=== PATIENT | female | born 1995 | race Caucasian/White ===

== ENCOUNTER → 2017-02-24 | Outpatient (CLI) | payer OTHER ==
--- NOTE | 2017-02-24 16:56 | REP ---
CT ABDOMEN WITHOUT CONTRAST: 02/24/2017. Comparison: Abdominal wall ultrasound 08/15/2013, CT 02/01/2011. Clinical history: Upper abdominal pain. Possible ventral hernia. Technique: Noncontrast images from the dome of the diaphragm to the iliac crests with coronal and sagittal reconstructions provided. Findings: Lung bases are clear. Heart is not enlarged. There is no pericardial thickening or effusion. The liver, spleen, gallbladder, pancreas, adrenal glands, kidneys, abdominal portions of the colon and small bowel were all unremarkable. There is no aortic aneurysm, periaortic or retroperitoneal pathologic sized lymphadenopathy. Bone windows show lumbar and lower thoracic spine, their posterior elements and visualized lower thoracic ribs all unremarkable. There are two curvilinear umbilical jewelry pieces at the superior and inferior aspect of the umbilicus. No umbilical hernia or diastases of the rectus muscles and sagittal reconstructions. The supra and infraumbilical subcutaneous fat layer is thicker in those locations than elsewhere in the anterior abdominal wall. This may reflect increased fatty deposition or even infiltrative type lipomas where no capsule is seen, but they may still be palpable. That would have to be correlated clinically. There is no evidence of a Spigelian hernia with the rectus and oblique muscles maintaining normal relationships. No lumbar hernia is evident. No other significant finding. Impression: 1. There is no CT evidence of umbilical or midline/ventral hernia in the abdomen. No diastases of the rectus muscles nor Spigelian hernia. This is a negative examination for any CT findings. If there is a palpable abnormality in the midline, it could possibly represent infiltrative lipoma without a capsule to clearly define it on imaging. Signed by Antonio Mojica MD 02/24/2017 05:11 P
== END ==
LOC: M RAD 15:19
PROVIDERS: ATTEND Nurse Practitioner Family
DX: R10.10 Upper abdominal pain, unspecified (principal)

== ENCOUNTER → 2017-04-19 | Day surgery (SDC) | payer OTHER ==
[~2017-04-19] VITALS: Ht 165.1 cm; Wt 74.8 kg
[~2017-04-19] MED LIST: LIDOCAINE 2% INJ 100 MG/5 ML SDV (FOR ANES.) As Ordered ONE; LIDOCAINE W/EPINEPHRINE 1% 20ML VIAL As Ordered ONE; LR 1,000 ML IV ONE; LR 1,000 ML IV SCH; MIDAZOLAM INJ 2 MG/2 ML VIAL (J2250) As Ordered ONE; PROPOFOL 200 MG/20 ML VIAL As Ordered ONE; SERT-155 PO; TRINTAB PO; fentaNYL 100 MCG/2 ML INJECTION (J3010) As Ordered ONE
[2017-04-19 10:37] LABS: CONTROL LINE UCG INT CTR LINE PRESENT
[2017-04-19 14:40] VITALS: BP 120/75
--- NOTE | 2017-04-19 21:11 | RO ---
DATE OF PROCEDURE: 04/19/2017 PREOPERATIVE DIAGNOSIS: Abdominal wall lipoma. POSTOPERATIVE DIAGNOSIS: Abdominal wall lipoma. OPERATIVE PROCEDURE: Excision of abdominal wall lipoma. SURGEON: Alverto Velazquez MD SERVICE ATTENDANT: None. ANESTHESIA: IV sedation with 6 mL of 1% lidocaine with epinephrine local. COMPLICATIONS: None. INDICATIONS FOR PROCEDURE: The patient is a 21-year-old female with a supraumbilical abdominal mass that is very painful. Recommendation was to proceed with excision of this likely abdominal wall lipoma. Risks and benefits of procedure not limited but including bleeding, infection and damage to surrounding structures were discussed in detail with the patient, informed consent was obtained and procedure was planned. DESCRIPTION OF PROCEDURE: The patient brought back to operating room three. After sufficient sedation the abdomen was sterilely prepped and draped. Next, a time out was done to confirm proper patient and proper procedure. Following that, 6 mL of lidocaine was injected into the skin and subcutaneous tissue in the midline. A #15 blade scalpel was then used to make a 6 cm incision. Following that, using sharp dissection with Metzenbaum scissors, the lipoma was carefully dissected free from the abdominal wall posteriorly and laterally until the edges were reached. Once the edges were reached, the base of it was carefully dissected free using electrocautery until the mass was completely removed measuring 6 x 6 cm in length and width and about 4 cm in depth. The lipoma was removed. The subcutaneous tissues were approximated with interrupted #3-0 Vicryl sutures. Skin was brought back together with a running #4-0 Vicryl subcuticular suture. The area was then cleaned and dried. Steri-Strips, 4 x 4 and tape were applied thus ending the procedure.
== END | disposition home or self-care (01) ==
LOC: M SDC 09:59
PROVIDERS: ATTEND Surgery
DX: D17.1 Benign lipomatous neoplasm of skin and subcutaneous tissue of trunk (principal); F41.9 Anxiety disorder, unspecified; F32.9 Major depressive disorder, single episode, unspecified; Z88.0 Allergy status to penicillin; Z79.3 Long term (current) use of hormonal contraceptives; Z79.899 Other long term (current) drug therapy
CPT/HCPCS: 22903; 84703; 88304; J2250; J3010

== ENCOUNTER 2017-10-25 15:52 | Emergency (ER) | payer OTHER ==
[~2017-10-25] VITALS: Ht 162.6 cm; Wt 72.7 kg
[2017-10-25 15:52] VITALS: BP 124/76
[~2017-10-25 15:52] MED LIST changes: -LIDOCAINE 2% INJ 100 MG/5 ML SDV (FOR ANES.) As Ordered ONE; -LIDOCAINE W/EPINEPHRINE 1% 20ML VIAL As Ordered ONE; -LR 1,000 ML IV ONE; -LR 1,000 ML IV SCH; -MIDAZOLAM INJ 2 MG/2 ML VIAL (J2250) As Ordered ONE; -PROPOFOL 200 MG/20 ML VIAL As Ordered ONE; -TRINTAB PO; +TRINTAB3 PO; -fentaNYL 100 MCG/2 ML INJECTION (J3010) As Ordered ONE
[2017-10-25] MEDS ORDERED: MAGNESIUM CITRATE 300 ML BTL PO ONE (16:45)
[2017-10-25] MEDS ORDERED: ONDANSETRON 4 MG ORAL DISINTEGRATING TAB (S0181) PO ONE (16:45)
[2017-10-25] MEDS ORDERED: ZOFR4TAB3 PO (16:49)
== END 2017-10-25 17:00 | disposition home or self-care (01) ==
LOC: M ED 15:52
DX: K59.00 Constipation, unspecified (principal); R11.2 Nausea with vomiting, unspecified; Z79.3 Long term (current) use of hormonal contraceptives; Z79.899 Other long term (current) drug therapy; Z88.0 Allergy status to penicillin

== ENCOUNTER → 2018-07-30 | Outpatient (REF) | payer OTHER | LOC: M LAB REF 16:42 | DX: J02.9 Acute pharyngitis, unspecified (principal) ==

== ENCOUNTER → 2019-02-13 | Outpatient (REF) | payer OTHER ==
[~2019-02-13] MED LIST changes: +TRINTAB PO; -TRINTAB3 PO; +ZOFR4TAB14 PO
[2019-02-13 14:54] LABS: CHLAMYDIA DNA AMPLIFICATION NEGATIVE (NEGATIVE); GC DNA AMPLIFICATION NEGATIVE (NEGATIVE)
== END ==
LOC: M SFHCWAGY 11:37
PROVIDERS: ATTEND Nurse Practitioner Women's Health
DX: Z12.4 Encounter for screening for malignant neoplasm of cervix (principal)
CPT/HCPCS: 87491; 87591; G0123

== ENCOUNTER → 2019-09-02 | Outpatient (REF) | payer OTHER ==
[~2019-09-02] MED LIST changes: -SERT-155 PO; +SERT50TA29 PO
[2019-09-02 11:32] LABS: BASO % 0.3 % (0.0-1.0); EOS # 0.1 10^3/uL (0.0-0.5); EOS % 0.4 % (0.0-3.0); HEMATOCRIT 42.5 % (36.0-47.0); HEMOGLOBIN 14.3 g/dl (12.0-15.5); LYMPH # 1.9 10^3/uL (1.5-5.0); LYMPH % 16.3 % (24.0-44.0); MEAN CORPUSCULAR HEMOGLOBIN 32.6 pg (27.0-33.0); MEAN CORPUSCULAR HGB CONC 33.6 g/dl (32.0-36.5); MONO # 0.6 10^3/uL (0.0-0.8); MONO % 5.4 % (0.0-5.0); NEUTROPHILS # 8.9 10^3/uL (1.5-8.5); NEUTROPHILS % 77.2 % (36.0-66.0); PLATELET COUNT, AUTOMATED 269 10^3/uL (150-450); RED BLOOD COUNT 4.38 10^6/uL (4.00-5.40); WHITE BLOOD COUNT 11.6 10^3/uL (4.0-10.0)
[2019-09-02 12:26] LABS: HEPATITIS C VIRUS ABY INDEX 0.1 INDEX (<0.8); HIV 1&2 SCREEN CENTAUR NEGATIVE (NEGATIVE); RUBELLA IgG QUALITATIVE IMMUNE (IMMUNE)
[2019-09-03 14:28] LABS: CHLAMYDIA DNA AMPLIFICATION NEGATIVE (NEGATIVE); GC DNA AMPLIFICATION NEGATIVE (NEGATIVE)
== END ==
LOC: M LABDRAWC 07:12
PROVIDERS: ATTEND Advanced Practice Midwife
DX: Z34.81 Encounter for supervision of other normal pregnancy, first trimester (principal)

== ENCOUNTER → 2019-10-14 | Outpatient (CLI) | payer OTHER ==
--- NOTE | 2019-10-14 08:41 | REP ---
Clinical: Anatomical evaluation. Comparison: None . Findings: Examination demonstrates a single live intrauterine in cephalic presentation. motion is identified by technologist. Placenta is noted anterior and grade zero without evidence for placenta previa or abruption. Amniotic fluid volume is normal. Cervix measures 4.5 cm in length and appears closed. Nuchal cord noted. Gestational age by LMP 18 weeks 4 days with CHRISTOPHE 03/12/2020 . Gestational age by current measurements 18 weeks 6 days with CHRISTOPHE 03/10/2020 . FHR equals 132 beats per minute. BPD 4.2 cm 18 weeks 6 days HC 16.0 cm 18 weeks 6 days AC 13.3 cm 18 weeks 5 days FL 2.9 cm 18 weeks 5 days HL 2.8 cm 19 weeks 0 days HC/AC ratio 1.20 Estimated weight 257 grams ( 53rd percentile). Anatomical assessment demonstrates normal structures including cranium, choroid plexus, lungs, diaphragm, stomach, cord insertion, kidneys/bladder, spine, and lower extremities. Limited evaluation of the cavum, posterior fossa, facial features, heart/ventricular outflow tracts, three-vessel cord images, and upper extremities. Impression: 1. Single live intrauterine demonstrating appropriate interval growth. 2. Limited anatomical assessment may warrant reevaluation and follow-up. 3. Nuchal cord. Electronically Signed by Golden Bose MD 10/14/2019 08:33 A
== END ==
LOC: M RAD 07:49
PROVIDERS: ATTEND Advanced Practice Midwife
DX: Z34.82 Encounter for supervision of other normal pregnancy, second trimester (principal); Z3A.18 18 weeks gestation of pregnancy

== ENCOUNTER → 2019-11-08 | Outpatient (CLI) | payer OTHER ==
--- NOTE | 2019-11-08 11:10 | REP ---
Clinical: Anatomical evaluation. Comparison: 10/14/2019 . Findings: Examination demonstrates a single live intrauterine in hansa breech presentation. motion is identified by technologist. Placenta is noted anterior and grade I without evidence for placenta previa or abruption. Amniotic fluid volume is normal. Cervix measures 4.7 cm in length and appears closed. No evidence for nuchal cord. Gestational age by LMP 22 weeks 1 day with CHRISTOPHE 03/12/2020 . Gestational age by current measurements 22 weeks 4 days with CHRISTOPHE 03/09/2020 . FHR equals 157 beats per minute. Estimated weight 521 grams ( 63rd percentile). Anatomical assessment demonstrates normal structures including cranium, choroid plexus, cavum, cerebellum/posterior fossa, facial features, lungs, four-chamber heart/ventricular outflow tracts, diaphragm, stomach, cord insertion/three-vessel cord, kidneys, and extremities. Impression: 1. Single live intrauterine in breech presentation demonstrating appropriate interval growth. 2. In conjunction with prior examination anatomical assessment is complete and normal. Electronically Signed by Golden Bose MD 11/08/2019 11:01 A
== END ==
LOC: M RAD 09:54
PROVIDERS: ATTEND Advanced Practice Midwife
DX: Z34.02 Encounter for supervision of normal first pregnancy, second trimester (principal)

== ENCOUNTER → 2019-12-13 | Outpatient (CLI) | payer OTHER ==
[2019-12-13 12:44] LABS: HEMATOCRIT 37.6 % (36.0-47.0); HEMOGLOBIN 12.5 g/dl (12.0-15.5); MEAN CORPUSCULAR HEMOGLOBIN 32.9 pg (27.0-33.0); MEAN CORPUSCULAR HGB CONC 33.2 g/dl (32.0-36.5); MEAN CORPUSCULAR VOLUME 98.9 fl (80.0-96.0); PLATELET COUNT, AUTOMATED 238 10^3/uL (150-450); WHITE BLOOD COUNT 13.3 10^3/uL (4.0-10.0)
== END ==
LOC: M WUC 09:48
PROVIDERS: ATTEND Advanced Practice Midwife
DX: Z34.02 Encounter for supervision of normal first pregnancy, second trimester (principal); Z3A.00 Weeks of gestation of pregnancy not specified

== ENCOUNTER 2019-12-24 12:57 | Outpatient (CLI) | payer OTHER ==
[~2019-12-24] VITALS: Ht 162.6 cm; Wt 95.8 kg
[2019-12-24 13:13] VITALS: BP 115/62
[2019-12-24] MEDS ORDERED: MAPA500T2 PO (13:41)
[2019-12-24 14:07] VITALS: BP 119/65
== END 2019-12-24 14:10 | disposition home or self-care (01) ==
LOC: M LDO 12:57
PROVIDERS: ATTEND Obstetrics & Gynecology
DX: O26.859 Spotting complicating pregnancy, unspecified trimester (principal); Z88.0 Allergy status to penicillin; Z88.1 Allergy status to other antibiotic agents; Z3A.00 Weeks of gestation of pregnancy not specified
CPT/HCPCS: G0378; G0463

== ENCOUNTER → 2020-02-13 | Outpatient (REF) | payer OTHER ==
[~2020-02-13] MED LIST changes: +MAPA500T2 PO
== END ==
LOC: M SFHCWAGY 13:13
PROVIDERS: ATTEND Advanced Practice Midwife
DX: O99.343 Other mental disorders complicating pregnancy, third trimester (principal)

== ENCOUNTER 2020-03-08 15:37 | Inpatient (IN) | payer OTHER ==
[~2020-03-08] VITALS: Ht 162.6 cm; Wt 98.4 kg
[2020-03-08] VITALS (10 sets, daily range): BP systolic 92–114; BP diastolic 55–71
[2020-03-08] MEDS ORDERED: LEXA1TAB2 PO (16:06)
[2020-03-08] MEDS ORDERED: TUMS750C5 PO (16:08)
[2020-03-08] MEDS ORDERED: LACTATED RINGER'S 1000 ML IV STA (16:20)
--- NOTE | 2020-03-08 16:33 | HPEPDOC ---
Obstetrical History & Physical General Date of Admission Mar 08, 2020 at 15:37 Primary Care Physician: LINDA STANFORD CNM History of Present Illness Patient is a 24-year-old female who is a at 39.3 weeks gestation with an CHRISTOPHE of 03/12/20 based off of her LMP and consistent with her first trimester ultrasound. She initiated care in her first trimester of . Her has been uncomplicated. She has been taking Lexapro 20 mg daily for anxiety. She presents to L&D for an elective IOL. She reports active movement and occasional contractions. She denies leaking of fluid or vaginal bleeding. 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 Past Medical History Medical History Anxiety treated with Lexapro Surgical History: Tonsilectomy, Other (lipoma resection) Family History Significant Family History: No pertinent family hx Social History Marital Status: Family situation: Spouse/partner home Psychosocial History: Anxiety * Smoker: non-smoker Alcohol: Denies Drugs: denies Abuse Violence Screening Have you been hit/kicked/slapp: No Have you been sexually assault: No Allergies Coded Allergies: MS - Amoxicillin (Unverified Allergy, Intermediate, hives, 04/19/17) MS - Penicillin G (Unverified Allergy, Intermediate, hives, 04/19/17) Medications Scheduled Escitalopram Oxalate (Lexapro) 20 Mg Tablet, 1 TAB PO QHS Scheduled PRN Acetaminophen (Mapap) 500 Mg Tablet, 1,000 MG PO Q6HP PRN for DISCOMFORT Calcium Carbonate (Tums) 300 Mg Tab.chew, 2 TABS PO Q6HP PRN for INDIGESTION Ondansetron (Zofran Odt) 4 Mg Tab, 4 MG PO Q4H PRN for NAUSEA Physical Examination Physical Examination GENERAL: Alert and oriented times three. BREAST: . ABDOMEN: Gravid and non-tender to touch. FETUS: Is vertex (VTX) by sterile vaginal examination (SVE), fetus is vertex (VTX) by Zeeshan. HEART RATE: Regular rate and rhythm. LUNGS: Clear to auscultation (CTA). EXTREMITIES: No edema. No clonus. Deep tendon reflexes (DTRs) + 2. Laboratory Data [facility] Laboratory Tests 2 03/08/20 15:47: Serology Scanned Report Hepatitis B Testing Urine Culture: No Growth Pertinent Laboratoy Data Blood Type: O+ RBC Antibody Screen: Negative HIV: Negative Hepatitis B: Negative Hepatitis C: Negative Rapid Plasma Reagin: Nonreactive Rubella: Immune Chlamydia/Gonorrhea: Negative Group B Streptococcus: Negative Quad Screen Test: Declined Glucose Tolerance Test: 121 Anatomy Ultrasound Ultrasound Date: Nov 08, 2019 Placenta Location: Anterior Normal Anatomy: Yes Placenta Previa: No Vaginal Examination Dilation: 2cm Effacement: 80% Station: -2 Cervical Consistency: Medium Cervical Position: Middle Presentation: Cephalic presentation Position: Vertex (occiput) Assessment Heart Rate (FHR): 120 Variability: Moderate Accelerations: Positive Decelerations: None Tocometer Contractions: Yes Frequency: greater than 9 min/apart Multi-drug resistant Organism: No history of MDRO Assessment/Plan Assessment IUP at 39.3 weeks Category I FHR tracing GBS negative elective induction of labor Plan Admit to Labor and delivery. Slide Fasteners Inspector and consent. Diet: . Group B Streptococcus (GBS) negative. Labs and intravenous (IV) per unit protocol. Counseled on Cytotec, beaver bulb and Pitocin for induction of labor. Anesthesia consult per patient's desire. Lactated Ringers (LR): Bolus 800 mL prior to epidural, then at 125 mL/hr. Anticipate cervical ripening. C-S as appropriate. LINDA STANFORD CNM Mar 08, 2020 16:33
[2020-03-08] MEDS ORDERED: miSOPROStol 50 MCG 1/2 TAB (S0191) PO SCH (17:00)
[2020-03-08 17:12] LABS: HEMATOCRIT 36.5 % (36.0-47.0); HEMOGLOBIN 11.9 g/dl (12.0-15.5); MEAN CORPUSCULAR HEMOGLOBIN 29.4 pg (27.0-33.0); MEAN CORPUSCULAR HGB CONC 32.6 g/dl (32.0-36.5); MEAN CORPUSCULAR VOLUME 90.1 fl (80.0-96.0); PLATELET COUNT, AUTOMATED 281 10^3/uL (150-450); RED BLOOD COUNT 4.05 10^6/uL (4.00-5.40); WHITE BLOOD COUNT 11.2 10^3/uL (4.0-10.0)
[2020-03-08] MEDS ORDERED: OXYTOCIN DRIP 30 UNITS in IV 1 EA IV SCH (21:30)
--- NOTE | 2020-03-08 21:32 | IPNPDOC ---
Obstetrical Progress Note Date of Service Mar 08, 2020 Subjective Patient reports she is feeling some contractions. Objective Vital Signs Date Time Temp Pulse Resp B/P (MAP) Pulse Ox O2 Delivery O2 Flow Rate FiO2 03/08/20 18:26 98.0 65 20 114/58 (76) 97 Room Air Assessment Heart Rate (FHR): 125 Variability: Moderate Accelerations: Positive Decelerations: None Heart Rate Tracing: Category I Tocometer Contractions: Yes Frequency: regular, every 1-3 min. Sterile Vaginal Examination Dilation: 2cm Effacement (%): 80% Station: -2 Cervical Consistency: Soft Cervical Position: Middle Postion/Presentation: Cephalic presentation Assessment and Plan EGA at Admission: 39.3 Status: Reassuring Group B Streptococcus: Negative Anticipate: Vaginal Delivery Additional Comments Patient given option for beaver bulb with low dose IV Pitocin or just IV Pitocin. Patient desires to just do IV Pitocin. LINDA STANFORD CNM Mar 08, 2020 21:32
[2020-03-08] MEDS: LR 1,000 ML IV SCH (22:43)
[2020-03-09] VITALS (47 sets, daily range): BP systolic 89–150; BP diastolic 50–97
[2020-03-09] MEDS ORDERED: PROMETHAZINE INJ 25 MG/ML VIAL (J2550) IV ONE (02:00)
[2020-03-09] MEDS ORDERED: BUTORPHANOL 2 MG/ML INJ (J0595) IV ONE (02:00)
[2020-03-09] MEDS ORDERED: FENTANYL 2MCG/ML ROPIVACAINE 0.2% IN 0.9% NACL 100ML IVBAG As Ordered ONE (04:30)
[2020-03-09] MEDS ORDERED: ONDANSETRON 4MG/2ML VIAL As Ordered ONE (05:24)
[2020-03-09] MEDS ORDERED: NALOXONE INJ 0.4MG/1ML VIAL (J2310 PER 1MG) IV PRN (05:45)
[2020-03-09] MEDS ORDERED: ONDANSETRON 4MG/2ML VIAL IV PRN (05:45)
[2020-03-09] MEDS ORDERED: ePHEDrine SULFATE 25 MG/5 ML(5MG/ML) SYRINGE IV PRN (05:45)
[2020-03-09] MEDS ORDERED: LACTATED RINGER'S 1000 ML IV PRN (05:45)
[2020-03-09] MEDS ORDERED: diphenhydrAMINE 50MG/ML VIAL (J1200) IV PRN (05:45)
[2020-03-09] MEDS ORDERED: REFRIGERATOR IV KEYS XX PRN (05:45)
[2020-03-09] MEDS ORDERED: FENTANYL/ROPIVACAINE/NACL BAG 100 ML EPIDURAL SCH (05:45)
[2020-03-09] MEDS ORDERED: EPIDURAL COMMENT XX SCH (05:45)
[2020-03-09] MEDS ORDERED: EPIDURAL/PCA KEYS XX PRN (05:45)
[2020-03-09] MEDS: LR 1,000 ML IV SCH (06:35)
[2020-03-09] MEDS ORDERED: BICITRA 30ML SOLN UDC PO ONE (09:15)
--- NOTE | 2020-03-09 09:15 | IPNPDOC ---
Obstetrical Progress Note Date of Service Mar 09, 2020 Subjective Patient is comfortable with her epidural but feeling some pressure and having some nausea and heartburn. Objective Vital Signs Date Time Temp Pulse Resp B/P (MAP) Pulse Ox O2 Delivery O2 Flow Rate FiO2 03/09/20 07:20 97.8 76 16 92/53 (66) 03/08/20 18:26 97 Room Air Assessment Heart Rate (FHR): 120 Variability: Moderate Accelerations: Positive Decelerations: Early Heart Rate Tracing: Category I Tocometer Contractions: Yes Frequency: regular Sterile Vaginal Examination Dilation: 9 cm (anterior lip) Effacement (%): 100% Station: +1 Cervical Consistency: Soft Postion/Presentation: Cephalic presentation Assessment and Plan EGA at Admission: 39.3 Weeks & Days 39.4 Status: Reassuring Group B Streptococcus: Negative Anticipate: Vaginal Delivery Additional Comments IV Pitocin has been off since patient getting her epidural. Bicitra ordered for patient. LINDA STANFORD CNM Mar 09, 2020 09:15
[2020-03-09] MEDS ORDERED: OXYTOCIN DRIP 30 UNITS in IV 1 EA IV SCH (10:48)
[2020-03-09] MEDS ORDERED: ANUSOL HC CREAM 30GM TOP PRN (11:00)
[2020-03-09] MEDS ORDERED: METHYLERGONOVINE MALEATE 0.2 MG TAB PO PRN (11:00)
[2020-03-09] MEDS ORDERED: IBUPROFEN 600 MG TAB PO PRN (11:00)
[2020-03-09] MEDS ORDERED: MEASLES,MUMPS,RUBELLA VACCINE INJ (MMR-II) (90707) SC SCH (11:00)
[2020-03-09] MEDS ORDERED: RHOGAM 300 MCG (1500 IU) INJ (J2790) IM SCH (11:00)
[2020-03-09] MEDS ORDERED: DIBUCAINE 1% OINTMENT 30GM TOP PRN (11:00)
[2020-03-09] MEDS ORDERED: ACETAMINOPHEN 500 MG TAB PO PRN (11:00)
--- NOTE | 2020-03-09 11:22 | DNPDOC ---
[facility] Delivery Note Delivery Note DATE OF DELIVERY: 03/09/20: at 1011 PREDELIVERY DIAGNOSIS: 39-4/7 weeks' gestation and labor. POST DELIVERY DIAGNOSIS: Delivered. PROCEDURE: Spontaneous vaginal delivery. RN BURN: Linda Son CNM, [place] ANESTHESIA: epidural. ESTIMATED BLOOD LOSS: 400 mL. FINDINGS: 8 pounds 6 ounces; 3800 grams; male infant, Score 8/9, right compound hand and a true knot. DELIVERY SUMMARY: Patient is a 24-year-old female who is now a that presented to L&D for an elective IOL at 39.3 weeks gestation. She received 1 dose of cytotec and IV Pitocin for her induction. The patient requested an epidural for pain management. She progressed to fully dilated at 0944. The patient pushed to a living male in the BAILEY position with restitution to ROT. A right compound hand was noted. The anterior shoulder delivered with ease and the corpus immediately followed. The baby was placed on the maternal abdomen [id number] active and crying. The cord was clamped after pulsation ceased and cut by the FOB. A 3-vessel cord was noted. the placenta delivered spontaneously and intact at 1017. A true knot was noted on the cord. Uterine hemostasis was achieved via rapid infusion of IV Pitocin and fundal massage. the vagina, cervix, and perineum was inspected and found to have a second degree perineal laceration. The laceration was repaired with a 3.[address]-1. the mom plans to breastfeed and did so in the room with no difficulty. she is naming him Bobby. All counts of instruments and laps are correct. Mom and baby are in stable condition. LINDA SON CNM Mar 09, 2020 11:22
[2020-03-09] MEDS: IBUPROFEN 800 MG TAB PO PRN (13:29)
[2020-03-09] MEDS: ESCITALOPRAM OXALATE 10 MG TAB (LEXAPRO) PO SCH (20:49)
[2020-03-09] MEDS: DOCUSATE SODIUM 100 MG CAP PO PRN (20:49)
[2020-03-09] MEDS: ACETAMINOPHEN TAB 650MG DOSE (2X325MG) PO PRN (20:50)
[2020-03-10 05:48] VITALS: BP 120/65
[2020-03-10] MEDS: IBUPROFEN 800 MG TAB PO PRN ×2 (05:50→17:55)
[2020-03-10 07:38] VITALS: BP 120/65
[2020-03-10] MEDS: PRENATAL VITAMINS CHEWABLE TABLET PO SCH (10:16)
[2020-03-10] MEDS: ACETAMINOPHEN TAB 650MG DOSE (2X325MG) PO PRN (10:20)
[2020-03-10 18:02] VITALS: BP 109/69
[2020-03-10] MEDS: DOCUSATE SODIUM 100 MG CAP PO PRN (21:19)
[2020-03-10] MEDS: ESCITALOPRAM OXALATE 10 MG TAB (LEXAPRO) PO SCH (21:20)
[2020-03-11] MEDS: IBUPROFEN 800 MG TAB PO PRN ×2 (05:40→16:04)
[2020-03-11 05:46] VITALS: BP 136/80
[2020-03-11] MEDS ORDERED: IBUP80TA PO (05:51)
[2020-03-11] MEDS: PRENATAL VITAMINS CHEWABLE TABLET PO SCH (08:13)
== END 2020-03-11 16:46 | disposition home or self-care (01) | DRG 807 ==
LOC: M LDI 15:37 → M OBS 03-09 13:15
PROVIDERS: ADMIT Advanced Practice Midwife; ATTEND Advanced Practice Midwife
PROC: 3E0P7GC Introduction of Other Therapeutic Substance into Female Reproductive, Via Natural or Artificial Opening (ICD-10-PCS; 2020-03-08)
PROC: 10E0XZZ Delivery of Products of Conception, External Approach (ICD-10-PCS; principal; 2020-03-09)
PROC: 0KQM0ZZ Repair Perineum Muscle, Open Approach (ICD-10-PCS; 2020-03-09)
DX: O99.344 Other mental disorders complicating childbirth (principal); Z37.0 Single live birth; F41.9 Anxiety disorder, unspecified; Z88.0 Allergy status to penicillin; Z79.899 Other long term (current) drug therapy; Z3A.39 39 weeks gestation of pregnancy; O32.8XX0 Maternal care for other malpresentation of fetus, not applicable or unspecified; O70.1 Second degree perineal laceration during delivery; F32.9 Major depressive disorder, single episode, unspecified

== ENCOUNTER → 2021-06-25 | Outpatient (REF) | payer OTHER ==
[~2021-06-25] MED LIST changes: +IBUP80TA PO; +LEXA1TAB2 PO; +TUMS750C5 PO
== END ==
LOC: M SFHCCLAY 14:10
PROVIDERS: ATTEND Family Medicine
DX: N89.8 Other specified noninflammatory disorders of vagina (principal)

== ENCOUNTER → 2021-06-28 | Outpatient (REF) | payer OTHER ==
[2021-06-28 13:14] LABS: GC DNA AMPLIFICATION NEGATIVE (NEGATIVE)
== END ==
LOC: M SFHCCLAY 11:21
PROVIDERS: ATTEND Family Medicine
DX: N89.8 Other specified noninflammatory disorders of vagina (principal)

== ENCOUNTER → 2022-03-08 | Outpatient (REF) | payer OTHER | LOC: M PLALAB 13:31 | PROVIDERS: ATTEND Advanced Practice Midwife | DX: Z34.91 Encounter for supervision of normal pregnancy, unspecified, first trimester (principal); Z53.9 Procedure and treatment not carried out, unspecified reason ==

== ENCOUNTER → 2022-03-28 | Outpatient (CLI) | payer OTHER ==
[2022-03-28 17:54] LABS: BASO % 0.3 % (0.0-1.0); EOS # 0.1 10^3/uL (0.0-0.5); EOS % 0.8 % (0.0-3.0); HEMOGLOBIN 14.1 g/dl (12.0-15.5); LYMPH # 2.3 10^3/uL (1.5-5.0); LYMPH % 21.1 % (24.0-44.0); MEAN CORPUSCULAR HEMOGLOBIN 31.8 pg (27.0-33.0); MEAN CORPUSCULAR HGB CONC 33.6 g/dl (32.0-36.5); MEAN CORPUSCULAR VOLUME 94.6 fl (80.0-96.0); MONO # 0.7 10^3/uL (0.0-0.8); MONO % 6.4 % (2.0-8.0); NEUTROPHILS # 7.6 10^3/uL (1.5-8.5); NEUTROPHILS % 71.1 % (36.0-66.0); PLATELET COUNT, AUTOMATED 275 10^3/uL (150-450); RED BLOOD COUNT 4.44 10^6/uL (4.00-5.40); WHITE BLOOD COUNT 10.7 10^3/uL (4.0-10.0)
[2022-03-28 18:57] LABS: HEPATITIS C VIRUS ABY INDEX 0.1 INDEX (<0.8); HIV 1&2 SCREEN CENTAUR NEGATIVE (NEGATIVE)
[2022-03-28 19:42] LABS: GC DNA AMPLIFICATION NEGATIVE (NEGATIVE)
== END ==
LOC: M PLALAB 13:29
PROVIDERS: ATTEND Advanced Practice Midwife
DX: Z34.91 Encounter for supervision of normal pregnancy, unspecified, first trimester (principal)

== ENCOUNTER → 2022-04-04 | Outpatient (CLI) | payer OTHER | LOC: M WHC 12:48 | PROVIDERS: ATTEND Advanced Practice Midwife | DX: O26.899 Other specified pregnancy related conditions, unspecified trimester (principal) ==

== ENCOUNTER → 2022-05-18 | Outpatient (CLI) | payer OTHER | LOC: M WHC 09:36 | PROVIDERS: ATTEND Specialist | DX: Z34.82 Encounter for supervision of other normal pregnancy, second trimester (principal); Z3A.19 19 weeks gestation of pregnancy ==

== ENCOUNTER → 2022-06-01 | Outpatient (CLI) | payer OTHER, SELFPAY | LOC: M WHC 09:06 | PROVIDERS: ATTEND Specialist | DX: Z36.2 Encounter for other antenatal screening follow-up (principal); Z3A.20 20 weeks gestation of pregnancy ==

== ENCOUNTER → 2022-07-25 | Outpatient (CLI) | payer OTHER, SELFPAY | LOC: M WHC 11:23 | PROVIDERS: ATTEND Advanced Practice Midwife | DX: O36.5930 Maternal care for other known or suspected poor fetal growth, third trimester, not applicable or unspecified (principal) ==

== ENCOUNTER → 2022-07-25 | Outpatient (CLI) | payer OTHER ==
[2022-07-25 15:54] LABS: HEMOGLOBIN 12.9 g/dl (12.0-15.5); MEAN CORPUSCULAR HEMOGLOBIN 32.6 pg (27.0-33.0); MEAN CORPUSCULAR HGB CONC 33.1 g/dl (32.0-36.5); MEAN CORPUSCULAR VOLUME 98.5 fl (80.0-96.0); PLATELET COUNT, AUTOMATED 250 10^3/uL (150-450); RED BLOOD COUNT 3.96 10^6/uL (4.00-5.40); WHITE BLOOD COUNT 14.5 10^3/uL (4.0-10.0)
[2022-07-25 19:51] LABS: GC DNA AMPLIFICATION NEGATIVE (NEGATIVE)
== END ==
LOC: M PLALAB 12:08
PROVIDERS: ATTEND Specialist
DX: Z34.82 Encounter for supervision of other normal pregnancy, second trimester (principal)

== ENCOUNTER → 2022-09-08 | Outpatient (REF) | payer OTHER | LOC: M SFHCWAGY 17:00 | PROVIDERS: ATTEND Advanced Practice Midwife | DX: Z34.83 Encounter for supervision of other normal pregnancy, third trimester (principal) ==

== ENCOUNTER 2022-10-03 09:43 | Inpatient (IN) | payer OTHER ==
[2022-10-03] VITALS (33 sets, daily range): BP systolic 86–178; BP diastolic 55–107
[~2022-10-03] VITALS: Ht 162.6 cm; Wt 106.0 kg
[2022-10-03] MEDS ORDERED: LACTATED RINGER'S 1000 ML IV STA (10:07)
[2022-10-03] MEDS ORDERED: METHYLERGONOVINE MALEATE 0.2 MG/ML VIAL (J2210) IM PRN (10:10)
[2022-10-03] MEDS ORDERED: OXYTOCIN DRIP 30 UNITS in IV 1 EA IV PRN (10:10)
[2022-10-03] MEDS ORDERED: CARBOPROST TROMETHAMINE 250 MCG/ML AMP IM PRN (10:10)
[2022-10-03] MEDS ORDERED: LIDOCAINE 1% MDV 20ML VIAL INFIL PRN (10:10)
[2022-10-03] MEDS ORDERED: TRANEXAMIC ACID INJection 1,000 MG in NS 100 ML IV PRN (10:10)
[2022-10-03] MEDS ORDERED: OXYTOCIN INJ 10 UNITS/ML VIAL (J2590) IM PRN (10:10)
[2022-10-03 10:31] LABS: HEMATOCRIT 38.5 % (36.0-47.0); HEMOGLOBIN 12.4 g/dl (12.0-15.5); MEAN CORPUSCULAR HEMOGLOBIN 30.5 pg (27.0-33.0); MEAN CORPUSCULAR HGB CONC 32.2 g/dl (32.0-36.5); MEAN CORPUSCULAR VOLUME 94.6 fl (80.0-96.0); PLATELET COUNT, AUTOMATED 233 10^3/uL (150-450); RED BLOOD COUNT 4.07 10^6/uL (4.00-5.40); WHITE BLOOD COUNT 10.9 10^3/uL (4.0-10.0)
[2022-10-03] MEDS ORDERED: HOME MED LIST COMPLETE! XX SCH (10:45)
[2022-10-03] MEDS: miSOPROStol 50MCG 1/2 TABLET PO SCH ×2 (11:25→15:34)
[2022-10-03] MEDS: SLF 3 ML SYR IV SCH ×2 (13:47→22:00)
[2022-10-03] MEDS ORDERED: OXYTOCIN DRIP 30 UNITS in IV 1 EA IV SCH (20:05)
[2022-10-03] MEDS ORDERED: NALOXONE INJ 0.4MG/1ML VIAL (J2310 PER 1MG) IV PRN (21:55)
[2022-10-03] MEDS ORDERED: LR 500 ML IV PRN (21:55)
[2022-10-03] MEDS ORDERED: ONDANSETRON 4MG 2ML VIAL IV PRN (21:55)
[2022-10-03] MEDS ORDERED: EPIDURAL/PCA KEYS XX PRN (21:55)
[2022-10-03] MEDS ORDERED: diphenhydrAMINE 50MG/ML VIAL IV PRN (21:55)
[2022-10-03] MEDS: FENTANYL/ROPIVACAINE/NACL BAG 100 ML EPIDURAL SCH (22:34)
[2022-10-03] MEDS: LR 1,000 ML IV SCH (22:48)
[2022-10-03] MEDS: ePHEDrine SULFATE 25 MG/5 ML(5MG/ML) SYRINGE IVP PRN ×3 (23:04→23:11)
[2022-10-04] VITALS (35 sets, daily range): BP systolic 100–159; BP diastolic 59–94
[2022-10-04] MEDS: LR 1,000 ML IV SCH (04:10)
[2022-10-04] MEDS: SLF 3 ML SYR IV SCH (06:00)
[2022-10-04] MEDS: FENTANYL/ROPIVACAINE/NACL BAG 100 ML EPIDURAL SCH (08:09)
[2022-10-04] MEDS ORDERED: ACETAMINOPHEN TAB 650MG DOSE (2X325MG) PO PRN (11:10)
[2022-10-04] MEDS ORDERED: ANUSOL HC CREAM 30GM TOP PRN (11:10)
[2022-10-04] MEDS ORDERED: ESCITALOPRAM OXALATE 10 MG TAB (LEXAPRO) PO ONE (11:10)
[2022-10-04] MEDS ORDERED: IBUPROFEN 600MG TAB PO PRN (11:10)
[2022-10-04] MEDS ORDERED: DOCUSATE SODIUM 100MG CAPSULE PO PRN (11:10)
[2022-10-04] MEDS ORDERED: MOM 30ML SUSPENSION UDC PO PRN (11:10)
[2022-10-04] MEDS ORDERED: DIBUCAINE 1% OINTMENT 30GM TOP PRN (11:10)
[2022-10-04] MEDS ORDERED: RHOGAM 300 MCG (1500 IU) INJ (J2790) IM SCH (11:10)
[2022-10-04] MEDS: IBUPROFEN 800 MG TAB PO PRN ×2 (11:31→21:13)
[2022-10-04] MEDS: ACETAMINOPHEN 500 MG TAB PO PRN ×2 (11:31→18:23)
[2022-10-04] MEDS ORDERED: LEXA1TAB PO (11:49)
[2022-10-04] MEDS: ESCITALOPRAM OXALATE 10 MG TAB (LEXAPRO) PO SCH (14:30)
[2022-10-05 05:21] VITALS: BP 120/77
[2022-10-05] MEDS: ESCITALOPRAM OXALATE 10 MG TAB (LEXAPRO) PO SCH (08:04)
[2022-10-05] MEDS: IBUPROFEN 800 MG TAB PO PRN (08:05)
[2022-10-05] MEDS ORDERED: PRENATAL VITAMINS CHEWABLE TABLET PO SCH (09:00)
[2022-10-06] MEDS ORDERED: MEASLES,MUMPS,RUBELLA VACCINE INJ (MMR-II) (90707) SC.IMMUN ONE (09:00)
== END 2022-10-05 18:15 | disposition home or self-care (01) | DRG 807 ==
LOC: M LDI 09:43 → M OBS 10-04 13:26
PROVIDERS: ADMIT Advanced Practice Midwife; ATTEND Advanced Practice Midwife
PROC: 3E0P7GC Introduction of Other Therapeutic Substance into Female Reproductive, Via Natural or Artificial Opening (ICD-10-PCS; 2022-10-03)
PROC: 10E0XZZ Delivery of Products of Conception, External Approach (ICD-10-PCS; principal; 2022-10-04)
PROC: 0HQ9XZZ Repair Perineum Skin, External Approach (ICD-10-PCS; 2022-10-04)
PROC: 10907ZC Drainage of Amniotic Fluid, Therapeutic from Products of Conception, Via Natural or Artificial Opening (ICD-10-PCS; 2022-10-04)
DX: O45.93 Premature separation of placenta, unspecified, third trimester (principal); Z37.0 Single live birth; O69.82X0 Labor and delivery complicated by other cord entanglement, without compression, not applicable or unspecified; Z3A.39 39 weeks gestation of pregnancy; O70.0 First degree perineal laceration during delivery

== ENCOUNTER → 2023-04-21 | Outpatient (REF) | payer OTHER ==
[~2023-04-21] MED LIST changes: +LEXA1TAB PO
== END ==
LOC: M PLALAB 14:05
PROVIDERS: ATTEND Advanced Practice Midwife
DX: Z12.4 Encounter for screening for malignant neoplasm of cervix (principal)

== ENCOUNTER → 2023-06-22 | Outpatient (REF) | payer OTHER ==
[2023-06-22 17:39] LABS: BASO # 0.1 10^3/uL (0.0-0.2); BASO % 0.6 % (0.0-1.0); EOS # 0.1 10^3/uL (0.0-0.5); EOS % 1.5 % (0.0-3.0); HEMATOCRIT 42.3 % (36.0-47.0); LYMPH # 1.9 10^3/uL (1.5-5.0); MEAN CORPUSCULAR HEMOGLOBIN 31.8 pg (27.0-33.0); MEAN CORPUSCULAR HGB CONC 33.1 g/dl (32.0-36.5); MEAN CORPUSCULAR VOLUME 96.1 fl (80.0-96.0); MONO # 0.8 10^3/uL (0.0-0.8); MONO % 9.3 % (2.0-8.0); NEUTROPHILS # 6.1 10^3/uL (1.5-8.5); NEUTROPHILS % 67.4 % (36.0-66.0); PLATELET COUNT, AUTOMATED 280 10^3/uL (150-450); WHITE BLOOD COUNT 9.1 10^3/uL (4.0-10.0)
[2023-06-22 17:44] LABS: HCG, SERUM QUANTITATIVE < 2.6 MIU/ML (<4.2)
[2023-06-22 17:47] LABS: ALBUMIN 3.6 G/DL (3.2-5.2); ALKALINE PHOSPHATASE 84 U/L (46-116); ALT/SGPT 20 U/L (7.0-40); AST/SGOT 13 U/L (<34); BILIRUBIN,TOTAL 0.4 MG/DL (0.3-1.2); BLOOD UREA NITROGEN 14 MG/DL (9-23); CALCIUM LEVEL 9.6 MG/DL (8.5-10.1); CARBON DIOXIDE LEVEL 28 MMOL/L (20-31); CHLORIDE LEVEL 107 MMOL/L (98-107); CREATININE FOR GFR 0.76 MG/DL (0.55-1.30); GLOMERULAR FILTRATION RATE > 60.0 (>60); GLUCOSE, FASTING 91 MG/DL (60-100); POTASSIUM SERUM 4.7 MMOL/L (3.5-5.1); SODIUM LEVEL 141 MMOL/L (136-145); TOTAL PROTEIN 6.7 G/DL (5.7-8.2)
[2023-06-22 17:48] LABS: THYROID STIMULATING HORMONE 1.733 uIU/ML (0.55-4.78)
[2023-06-22 17:49] LABS: FREE T4 1.09 NG/DL (0.89-1.76)
[2023-06-22 19:02] LABS: GC DNA AMPLIFICATION NEGATIVE (NEGATIVE)
== END ==
LOC: M SFHCCLAY 11:12
PROVIDERS: ATTEND Family Medicine
DX: N92.1 Excessive and frequent menstruation with irregular cycle (principal)